=== PATIENT | female | born 1945 | race Caucasian/White ===

== ENCOUNTER → 2016-05-05 | Outpatient (CLI) | payer OTHER | LOC: FIMAGING 10:56 | PROVIDERS: ATTEND Orthopaedic Surgery | DX: M25.571 Pain in right ankle and joints of right foot (principal) ==

== ENCOUNTER → 2016-06-25 | Outpatient (CLI) | payer OTHER | LOC: FIMAGING 14:27 | PROVIDERS: ATTEND Orthopaedic Surgery Hand Surgery | DX: M75.21 Bicipital tendinitis, right shoulder (principal); S43.431A Superior glenoid labrum lesion of right shoulder, initial encounter ==

== ENCOUNTER 2016-07-07 09:26 | Day surgery (SDC) | payer OTHER ==
[2016-07-07] MEDS ORDERED: BUPIVACAINE/EPI 0.5% 30 ML SDV ONE (09:42)
[2016-07-07] MEDS ORDERED: BUPIVACAINE 0.5% 30 ML SDV ONE (09:56)
[2016-07-07] MEDS ORDERED: MIDAZOLAM 2 MG/2 ML VIAL ONE (10:35)
[2016-07-07] MEDS ORDERED: SCOPOLAMINE HYDROBROMIDE 1.5 MG PATCH TD ONE ×2 (10:39→11:00)
[2016-07-07] MEDS ORDERED: fentaNYL 100 MCG/2 ML INJ ONE ×2 (10:42→12:14)
[2016-07-07] MEDS ORDERED: PROPOFOL 200 MG/20 ML VIAL ONE (10:44)
[2016-07-07] MEDS ORDERED: LIDOCAINE 1% 5 ML SDV ID PRN (10:46)
[2016-07-07] MEDS ORDERED: LR 1,000 ML IV ONE (10:46)
[2016-07-07 10:55] LABS: ANION GAP 7 mEq/L (8-16); CALCIUM 9.4 mg/dL (8.5-10.4); CARBON DIOXIDE 26 mEq/l (22-31); CHLORIDE 107 mEq/L (97-110); CREATININE 0.7 mg/dL (0.6-1.0); GLOMERULAR FILTRATION RATE > 60; GLUCOSE 89 mg/dL (70-100); POTASSIUM 4.1 mEq/L (3.5-5.2); SODIUM 140 mEq/L (134-144)
--- NOTE | 2016-07-07 12:55 | GOP ---
[f rep st] OPERATIVE REPORT DATE OF OPERATION: 07/07/2016 SURGEON: Dre William MD ANESTHESIA: General. PREOPERATIVE DIAGNOSIS: Right foot tibial nerve entrapment. POSTOPERATIVE DIAGNOSIS: Right foot tibial nerve entrapment. PROCEDURE PERFORMED: 1. Right tibial nerve release. 2. Right tibial nerve wrap. FINDINGS: ESTIMATED BLOOD LOSS: Minimal. INDICATIONS: Patient is a 70-year-old, with recalcitrant right medial heel pain. Clinically and ra diographically, she is felt to have entrapment of the tibial nerve as it pierced the abductor halluc is fascia. Based on her persistence of symptoms refractory to nonoperative treatment, she is intere sted in pursuing operative treatment. From an operative standpoint, release of the nerve and fascia was recommended. The patient acknowledged she understood the potential risks, including but not li mited to, bleeding, infection, neurovascular damage, the loss of limb or limb function, persistence or worsening of pain despite operative treatment, and anesthetic risks. She acknowledged she unders tood the potential risks, planned procedure, and postoperative plan well, and had all questions answ ered prior to surgery. She gave her consent for the operative procedure. DESCRIPTION OF PROCEDURE: Patient was brought to e operating room after IV antibiotics were adminis tered. She was placed in the supine position where general anesthetic was administered. A tourniqu et was placed on the right calf, and a bump underneath the left hip and shoulder, and the right lowe r leg was prepped and draped in standard sterile fashion; and after marking the incision and Messi wra p exsanguination, tourniquet was inflated to 250. An oblique incision was made along the medial asp ect of the heel centered over the spot of her maximal pain. Skin and subcutaneous tissue were sharp ly incised. The retinaculum overlying the tibial nerve was opened. Using tenotomy scissors, the ne rve was identified. There was noted to be a significant amount of excessive fat in the subcutaneous tissue. The abductor fascia was noted to be "impinging" on the nerve as it coursed plantarly. Fas cial layer was released. The nerve was then wrapped in collagen sheath ([employer]) to min imize risk of adherence. Attention was directed towards closure. The tourniquet was deflated with no untoward bleeding seen. Subcutaneous tissue was closed with 3-0 Vicryl suture in interrupted fas hion. Skin was closed with 4-0 nylon interrupted vertical mattress sutures. 0.5% Marcaine without epinephrine was injected in the wound sites. The wound was dressed with sterile Adaptic, 4 x 4, and Kerlix. The patient tolerated the procedure well and was taken to the recovery room, extubated, in stable condition postoperatively. All sponge, needle, and instrument counts were reported as being correct. DRAINS: None. COMPLICATIONS: None. PLAN: Patient will be discharged home. Weightbearing as tolerated. /[id number]/MODL
== END 2016-07-07 13:38 | disposition home or self-care (01) ==
LOC: FSGY 09:26
PROVIDERS: ATTEND Orthopaedic Surgery Foot and Ankle Surgery
PROC: 01NG0ZZ Release Tibial Nerve, Open Approach (ICD-10-PCS; principal; 2016-07-07 11:00)
DX: G57.51 Tarsal tunnel syndrome, right lower limb (principal); K21.9 Gastro-esophageal reflux disease without esophagitis
CPT/HCPCS: C1763; J0690; J2250; J2704; J3010

== ENCOUNTER → 2016-10-13 | Outpatient (CLI) | payer OTHER | LOC: FIMAGING 14:48 | PROVIDERS: ATTEND Family Medicine | DX: Z12.31 Encounter for screening mammogram for malignant neoplasm of breast (principal); Z80.3 Family history of malignant neoplasm of breast | CPT/HCPCS: G0202 ==

== ENCOUNTER → 2016-12-30 | Outpatient (CLI) | payer OTHER | LOC: FIMAGING 09:47 | PROVIDERS: ATTEND Physical Medicine & Rehabilitation | PROC: CP2C1ZZ Tomographic (Tomo) Nuclear Medicine Imaging of Right Lower Extremity using Technetium 99m (Tc-99m) (ICD-10-PCS; principal; 2016-12-30) | DX: S82.891A Other fracture of right lower leg, initial encounter for closed fracture (principal) | CPT/HCPCS: 78320; A9503 ==

== ENCOUNTER → 2017-06-10 | Outpatient (CLI) | payer OTHER | LOC: FIMAGING 14:28 | PROVIDERS: ATTEND Internal Medicine Cardiovascular Disease | DX: R07.9 Chest pain, unspecified (principal); R06.02 Shortness of breath; M54.2 Cervicalgia; I51.81 Takotsubo syndrome ==

== ENCOUNTER → 2017-07-16 | Outpatient (CLI) | payer OTHER | LOC: BHCLAF 11:30 | PROVIDERS: ATTEND Internal Medicine Cardiovascular Disease | DX: M54.2 Cervicalgia (principal); R53.83 Other fatigue | CPT/HCPCS: 93880-PO ==

== ENCOUNTER → 2018-04-29 | Outpatient (CLI) | payer OTHER | LOC: FIMAGING 13:36 | PROVIDERS: ATTEND Family Medicine | DX: Z12.31 Encounter for screening mammogram for malignant neoplasm of breast (principal); Z80.3 Family history of malignant neoplasm of breast ==

== ENCOUNTER → 2018-05-03 | Outpatient (CLI) | payer OTHER | LOC: FIMAGING 13:29 | PROVIDERS: ATTEND Family Medicine | DX: N60.02 Solitary cyst of left breast (principal) ==

== ENCOUNTER → 2018-07-14 | Outpatient (CLI) | payer OTHER | LOC: CIMAGING 07:54 | PROVIDERS: ATTEND Family Medicine | DX: G45.3 Amaurosis fugax (principal); G45.9 Transient cerebral ischemic attack, unspecified; I10 Essential (primary) hypertension | CPT/HCPCS: 36415-PO; 93880-PO ==